=== PATIENT | female | born 1990 | race Two or more races ===

== ENCOUNTER 2023-01-31 14:28 | Observation (INO) | payer MEDICAID ==
[~2023-01-31] VITALS: Ht 152.4 cm; Wt 98.9 kg
[2023-01-31] MEDS ORDERED: CEPH250C PO (16:07)
[2023-01-31] MEDS ORDERED: PREN-96 PO (16:07)
== END 2023-01-31 16:06 | disposition home or self-care (01) ==
LOC: LDRP 14:28 → UNDOADMOB 14:28 → LDRP 15:40
PROVIDERS: ADMIT Obstetrics & Gynecology; ATTEND Obstetrics & Gynecology
DX: O23.43 Unspecified infection of urinary tract in pregnancy, third trimester (principal); O62.9 Abnormality of forces of labor, unspecified; Z3A.38 38 weeks gestation of pregnancy
CPT/HCPCS: 59025; 81002; 94760; G0378

== ENCOUNTER 2023-02-02 02:45 | Inpatient (IN) | payer MEDICAID ==
[~2023-02-02] VITALS: Ht 162.6 cm; Wt 98.9 kg
[2023-02-02] VITALS (13 sets, daily range): BP systolic 96–123; BP diastolic 43–63; PULSE 61–77; RESP 15–18; TEMP 97.9–98.4; O2SAT 94–98
[~2023-02-02 02:45] MED LIST: CEPH250C PO; PREN-96 PO
[2023-02-02] MEDS ORDERED: ceFAZolin 2 GM/D5W100ml 100 ML IV ONE ×2 (05:45→07:41)
[2023-02-02] MEDS ORDERED: LACTATED RINGER'S 1,000 ML IV ONE (05:45)
[2023-02-02 06:24] LABS: Basophils # (auto) 0 10 ^3/uL (0-0.2); Basophils % (auto) 0.2 % (0.0-2.0); Eosinophils # (auto) 0 10 ^3/uL (0-0.8); Eosinophils % (auto) 0.6 % (0.0-7.0); Hematocrit 41.3 % (36.0-46.0); Hemoglobin 13.8 g/dL (12.2-16.2); Mean Corpuscular Hgb Conc. 33.5 g/dL (32.0-36.0); Mean Corpuscular Volume 89.6 fL (80.0-100.0); Monocytes # (auto) 0.8 10 ^3/uL (0-1.3); Monocytes % (auto) 10.1 % (0.0-12.0); Neutrophils # (auto) 5.1 10 ^3/uL (1.6-8.6); Neutrophils % (auto) 64.1 % (37.0-80.0); Nucleated Red Blood Cells % 0.1 %; Red Blood Cells 4.61 10^6/uL (4.0-5.20); Red Cell Distribution Width 13.8 % (11.8-14.3); White Blood Cell 7.9 10^3/uL (4.4-10.8)
[2023-02-02 06:31] LABS: Amphetamine Screen, Urine Neg (NEGATIVE)
[2023-02-02 06:32] LABS: Barbiturate Scree,Urine Neg (NEGATIVE); Benzodiazephine Screen, Urine Neg (NEGATIVE); Cocaine Screen, Urine Neg (NEGATIVE); Opiate Scree,Urine Neg (NEGATIVE)
[2023-02-02 06:33] LABS: Cannabinoid Screen, Urine Neg (NEGATIVE); Phencyclidine Screen, Urine Neg (NEGATIVE)
[2023-02-02 06:35] LABS: Alanine Aminotransferase 16 U/L (7-40); Albumin 3.8 g/dL (3.2-4.8); Alkaline Phosphatase 179 U/L (46-116); Anion Gap 8 (5-15); Aspartate Aminotransferase 21 U/L (13-40); Bilirubin, Total 0.8 mg/dL (0.2-1.0); Calcium 9.4 mg/dL (8.5-10.1); Carbon Dioxide 24 mmol/L (20-30); Chloride 106 mmol/L (98-107); Glucose 79 mg/dL (74-106); Potassium 3.5 mmol/L (3.5-5.1); Sodium 138 mmol/L (136-145); Total Protein 6.3 g/dL (5.7-8.2)
[2023-02-02 06:38] LABS: BUN/Creatinine Ratio 7.9 (10.0-20.0); Blood Urea Nitrogen < 5 mg/dL (9-23)
[2023-02-02 06:48] LABS: INR 1.93 (0.9-1.15); Partial Thromboplastin Time 27.6 SEC (24.5-34.5); Prothrombin Time 19.4 sec (9.3-11.8)
[2023-02-02] MEDS: LACTATED RINGER'S 1,000 ML IV SCH ×3 (07:45→22:28)
[2023-02-02] MEDS ORDERED: MORPHINE SULF PF 5 MG/10 ML VIAL ONE (11:56)
[2023-02-02] MEDS ORDERED: PHENYLEPHRINE HCL 10 MG/ML VL ONE (12:18)
[2023-02-02] MEDS ORDERED: ePHEDrine SULFATE 50 MG/ML AMP ONE ×2 (12:23→12:35)
[2023-02-02] MEDS ORDERED: oxyTOCIN 10 UNIT/ML 10ML VIAL ONE (12:25)
[2023-02-02] MEDS ORDERED: ONDANSETRON HCL 4 MG/2 ML VIAL ONE ×2 (12:27→14:01)
[2023-02-02] MEDS ORDERED: HYDROmorphone HCL 2 MG/ML VL/or syr IV PRN (13:15)
[2023-02-02] MEDS ORDERED: DexAMETHasone SOD PHOS 10MG/1ML VIAL INJ IV PRN (13:15)
[2023-02-02] MEDS ORDERED: diphenhdrAMINE HCL 50 MG/1 ML VL IV PRN (13:15)
[2023-02-02] MEDS ORDERED: MEPERIDINE HCL (25 MG/ML) 1ML VIAL IV PRN (13:15)
[2023-02-02] MEDS ORDERED: KETOROLAC TROMETH 30 MG/ML 1ML VIAL IV PRN (13:15)
[2023-02-02] MEDS ORDERED: ONDANSETRON HCL 4 MG/2 ML VIAL IV PRN ×2 (13:15→17:45)
[2023-02-02] MEDS ORDERED: ACETAMINOPHEN IV 1000 MG/100ML (10MG/ML) IV PRN (14:45)
[2023-02-02] MEDS ORDERED: ACETAMINOPHEN IV 100 ML IV ONE (19:05)
[2023-02-02] MEDS ORDERED: ceFAZolin 1GM/50ML 50 ML IV ONE (20:14)
[2023-02-02] MEDS: ceFAZolin 1GM/50ML 50 ML IV SCH (20:15)
[2023-02-03] VITALS (16 sets, daily range): BP systolic 91–113; BP diastolic 44–64; PULSE 71–94; RESP 16–18; TEMP 97.9–98.8; O2SAT 93–100
[2023-02-03] MEDS ORDERED: ceFAZolin 1GM/50ML 50 ML IV ONE ×2 (04:30→12:14)
[2023-02-03] MEDS: ceFAZolin 1GM/50ML 50 ML IV SCH ×2 (04:35→12:26)
[2023-02-03 06:50] LABS: Basophils # (auto) 0 10 ^3/uL (0-0.2); Eosinophils # (auto) 0 10 ^3/uL (0-0.8); Eosinophils % (auto) 0.1 % (0.0-7.0); Hemoglobin 10.1 g/dL (12.2-16.2); Lymphocytes # (auto) 1.5 10 ^3/uL (0.4-5.4); Mean Corpuscular Hemoglobin 30.6 pg (28.0-32.0); Mean Corpuscular Hgb Conc. 33.7 g/dL (32.0-36.0); Mean Corpuscular Volume 90.7 fL (80.0-100.0); Monocytes # (auto) 1.1 10 ^3/uL (0-1.3); Monocytes % (auto) 9.9 % (0.0-12.0); Neutrophils # (auto) 8.4 10 ^3/uL (1.6-8.6); Red Blood Cells 3.31 10^6/uL (4.0-5.20); Red Cell Distribution Width 13.6 % (11.8-14.3)
[2023-02-03] MEDS ORDERED: BISACODYL 10 MG RECT SUPP PR PRN (16:30)
[2023-02-03] MEDS ORDERED: HYDROcodone-ACET 5/325MG TAB PO PRN (16:30)
[2023-02-03] MEDS: HYDROcodone-ACET 5/325MG TAB PO PRN ×2 (16:33→22:59)
[2023-02-03] MEDS: IBUPROFEN 800 MG TAB PO PRN (20:03)
[2023-02-03] MEDS: DOCUSATE SOD 100 MG CAP PO SCH (21:51)
[2023-02-04 02:45] VITALS: BP 97/64; PULSE 79; RESP 16; TEMP 97.9; O2SAT 97
[2023-02-04] MEDS: IBUPROFEN 800 MG TAB PO PRN ×2 (06:09→16:53)
[2023-02-04 06:40] VITALS: BP_SYST 100; BP_SYST 98; BP_DIAS 43; BP_DIAS 57; PULSE 75; PULSE 77; RESP 16; RESP 18; TEMP 98; TEMP 98.4; O2SAT 96; O2SAT 97
[2023-02-04] MEDS ORDERED: HYDR-4902 PO (09:40)
[2023-02-04] MEDS ORDERED: DOCU-265 PO (09:40)
[2023-02-04] MEDS ORDERED: IBUP-1455 PO (09:40)
[2023-02-04] MEDS ORDERED: DOCUSATE CALCIUM 240 MG CAP PO SCH (10:00)
[2023-02-04] MEDS: DOCUSATE SOD 100 MG CAP PO SCH (10:00)
[2023-02-04 11:20] VITALS: BP 96/42; PULSE 76; RESP 18; TEMP 98.5; O2SAT 97
[2023-02-04 15:00] VITALS: BP 104/61; PULSE 73; RESP 18; TEMP 97.8; O2SAT 97
[2023-02-04 19:00] VITALS: BP 112/67; PULSE 76; RESP 18; TEMP 98.4; O2SAT 97
[2023-02-04 19:06] LABS: Treponema pallidum Ab (FTA-Ab) Non Reactive (Non Reactive)
[2023-02-04 19:38] VITALS: BP 112/67; PULSE 76; RESP 18; TEMP 98.4; O2SAT 97
[2023-02-05 05:07] LABS: RPR Non Reactive (Non Reactive)
== END 2023-02-04 20:50 | disposition home or self-care (01) | DRG 540 ==
LOC: LDRP 02:45 → OBSVTOIN 05:25 → LDRP 05:26
PROVIDERS: ADMIT Obstetrics & Gynecology; ATTEND Obstetrics & Gynecology
PROC: 10D00Z1 Extraction of Products of Conception, Low, Open Approach (ICD-10-PCS; principal; 2023-02-02 12:05)
DX: O32.1XX0 Maternal care for breech presentation, not applicable or unspecified (principal); R71.0 Precipitous drop in hematocrit; Z37.0 Single live birth; Z3A.38 38 weeks gestation of pregnancy
CPT/HCPCS: 36415; 59025; 76818; 80053; 80307; 85025; 85610; 85730; 86592; 86850; 86900; 86901; 94760; 94762; 96360; 96361; 96366; G0378; J0131; J1885; J2405; J2590